=== PATIENT | male | born 1940 | race Caucasian/White ===

== ENCOUNTER → 2019-11-09 12:51 | Outpatient (BNVA) | payer MEDICARE, OTHER, SELFPAY | PROVIDERS: Family Provider Family Medicine; PCP Family Medicine; Visit Provider Family Medicine | DX: N40.1 Benign prostatic hyperplasia with lower urinary tract symptoms (principal); F41.9 Anxiety disorder, unspecified; R35.0 Frequency of micturition; N40.0 Benign prostatic hyperplasia without lower urinary tract symptoms; Z12.5 Encounter for screening for malignant neoplasm of prostate | CPT/HCPCS: 80053; 81000; 85025; 87086; G0103 ==

== ENCOUNTER 2020-04-29 12:32 | Emergency (ER) | payer MEDICARE, OTHER, SELFPAY ==
[2020-04-29 12:47] VITALS: BP 129/68; PULSE 82; RESP 14; TEMP 36.2; O2SAT 98; BMI 19.6
--- NOTE | 2020-04-29 13:10 | ED_ITS ---
HPI - General Adult General: Chief complaint: General Medical Stated complaint: CONSTIPATED Time Seen by Provider: 04/29/20 12:51 History of Present Illness: HPI narrative: The patient is a 79-year-old male who comes to the ER complaining he is constipated and Passes feces. He says he is having abdominal cramping and feels like he needs to defecate but cannot. He says he put some soap on his finger and felt hard poop but could not get it to come out. Onset (ago): hour(s) (2) Severity: mild Quality: sharp Pain Consistency: intermittent and colicky Relieving factors: none Associated symptoms: Deny chest pain, confusion, dyspnea, headache(s), rash or palpitations Review of Systems General: Reports: 10 or more systems reviewed and unremarkable except in HPI a nd below Const: Denies: fatigue Eyes: Denies: change in vision, blurry vision or eye redness ENMT: Denies: throat pain, swelling of lips/tongue, ear or mastoid pain or nasal congestion Card: Denies: chest pain, palpitations, irregular heart rhythm, edema, dyspnea on exertion or orthopnea Resp: Denies: dyspnea, productive cough or non-productive cough GI: Denies: abdominal pain (Admits abdominal cramping), diarrhea or GI cramping : Denies: flank pain, urinary frequency or urinary urgency Musc: Denies: neck pain, back pain, extremity pain, joint pain, joint redness, limited range of motion or muscle weakness Skin/Breast: Denies: rash, pruritus, erythema, skin pain or skin tenderness Neuro: Denies: headache(s), numbness in extremities, weakness in extremities, sensory changes, difficulty walking, dizziness, confusion or Slurred speech present Psych: Denies: anxiety or depression Endo: Denies: polyuria All/Imm: Denies: urticaria, throat swelling or tongue swelling PFSH ED PFSH: Medical History (Updated 04/29/20 @ 15:53 by Burak Ricks MD) Anxiety Social History Smoking and tobacco status: never smoked Alcohol intake: never Physical Exam Const: COMMON NORMALS: no acute distress, average body habitus, patient oriented x3, no limitations, healthy appearing, alert and well nourished GENERAL APPEARANCE: cooperative, comfortable, well kempt and well developed ORIENTATION/CONSCIOUSNESS: Yes awake, Yes oriented to person, Yes oriented to place and Yes oriented to time HENMT: COMMON NORMALS: normocephalic, external ears normal and Normal external nose present HEAD & SCALP: normal to inspection and normocephalic NOSE: Normal external nose present EXTERNAL EAR: Yes external ears normal MOUTH: Normal oral and palatal mucosa present THROAT: posterior oropharynx normal Eye: COMMON NORMALS: Equal, round and reactive pupils present and EOMs intact bilaterally GENERAL EYE: appearance normal, both eyes and all related structures PUPIL: Yes Equal, round and reactive pupils present Neck/C-Spine: COMMON NORMALS: full ROM, no lymphadenopathy, no meningeal signs and no JVD GENERAL: Yes normal visual inspection Lymph: LYMPHATIC: no lymphadenopathy noted Chest: COMMONS NORMALS: normal inspection of the chest and normal palpation of entire chest wall Resp: COMMON NORMALS: normal respiratory effort, No retractions, No use of accessory muscles, clear to auscultation bilaterally and percussion normal EFFORT & INSPECTION: Yes able to speak in complete sentences AUSCULTATION: clear to auscultation bilaterally PERCUSSION: percussion normal Cardio: COMMON NORMALS: no JVD, regular rate, regular rhythm, S1 normal heart sound present, S2 normal heart sound present and Peripheral pulses 2+ throughout RATE: regular rate RHYTHM: regular rhythm HEART SOUNDS: S1 normal heart sound present and S2 normal heart sound present PERIPHERAL PULSES: Peripheral pulses 2+ throughout GI: COMMON NORMALS: Normal to inspection, nondistended, normoactive bowel sounds present, Soft to palpation, non-tender and no masses INSPECTION: Yes normal to inspection PALPATION: Yes Soft to palpation : COMMON NORMALS: Yes no CVA tenderness BLADDER/KIDNEY EXAM: Yes no CVA tenderness Back/Pelvis: COMMON NORMALS: no CVA tenderness, thoracic and lumbar spine normal to inspection, no thoracic nor lumbar tenderness and thoraco-lumbar ROM normal Extremity: COMMON NORMALS: normal to inspection, full ROM, capillary refill normal, no joint enlargement and no pedal edema GENERAL: Yes normal exam except as noted Neuro: COMMON NORMALS: patient oriented x3, CN's II-XII intact bilaterally, moves all extremities, no focal motor deficits, no sensory deficits noted and gait normal SENSORIUM/ORIENTATION: Yes alert, Yes oriented to person, Yes oriented to place and Yes oriented to time MENINGEAL SIGNS: Yes no meningeal signs Psych: COMMON NORMALS: mental status grossly normal, Normal thought process present, cooperative, normal affect and speech normal APPEARANCE: Yes well kempt ATTITUDE: Yes calm SPEECH: Yes normal speech THOUGHT PROCESS: Normal thought process present Skin: COMMON NORMALS: no rashes or lesions noted GENERAL SKIN EXAM: no rashes or lesions noted Course Vital Signs: Vital signs: Vital Signs Temperature 97.2 F L 04/29/20 12:47 Pulse Rate 82 04/29/20 12:47 Respiratory Rate 14 04/29/20 12:47 Blood Pressure 129/68 04/29/20 12:47 Pulse Oximetry 98 04/29/20 12:47 MDM - General Adult MDM Narrative: Medical decision making narrative: The patient was severely constipated he initially refused a fleets enema then allowed me to do it myself. He also has external hemorrhoids present which have mild tenderness to them. I tried to manually disimpact him as well which he did not want. He said the fleets enema did not help him pass a bowel movement and requested immediately to leave. I recommended he stay and we can try other enemas and manual disimpaction. He refused these options and signed AGAINST MEDICAL ADVICE and left. Differential Diagnosis: Differential Diagnosis: constipation, hemmorhoids, bowel ischemia/rupture Discharge Plan Discharge Patient Disposition: Left Against Medical Advice Clinical Impression: Fecal impaction Constipation Qualifiers: Constipation type: other constipation type Qualified Code(s): K59.09 - Other constipation Condition: Good Prescriptions: No Action alprazolam 1 mg tablet 1 mg PO TID PRN (Reason: anxiety) 15 Days Qty: 45 RF: 0 Referrals: Jimmy Hudson MD [Primary Care Provider] - Activity Restrictions/Additional Instructions: I recommended he return to the ER at any time for further evaluation. I recommended he stay and let me disimpact him manually however he refused and signed AGAINST MEDICAL ADVICE and left Coding Level of Care Code ED Compliance Lead for Te[employer] Fwd Exam Comprehensive
[2020-04-29] MEDS: Fleet Enema 133 mL Enema PR (13:18)
== END 2020-04-29 15:08 | disposition left against medical advice (07) ==
PROVIDERS: Emergency Provider Family Medicine; PCP Family Medicine
DX: K59.09 Other constipation (principal)
CPT/HCPCS: 12345; 99281; 99282

== ENCOUNTER 2020-06-05 22:27 | Emergency (ER) | payer MEDICARE, OTHER, SELFPAY ==
[2020-06-05 22:29] VITALS: BP 175/84; PULSE 69; RESP 16; TEMP 36.8; O2SAT 99; BMI 18.3
--- NOTE | 2020-06-05 22:42 | XRR_ITS ---
PROCEDURE INFORMATION: Exam: XR Right Shoulder Exam date and time: 06/05/2020 11:08 PM Age: 79 years old Clinical indication: Pain and injury or trauma; Fall; Blunt trauma (contusions or hematomas); Shoulder; Right; Injury date: 06/05/20 TECHNIQUE: Imaging protocol: XR Right shoulder. Views: 2 or more views. COMPARISON: No relevant prior studies available. FINDINGS: Bones/joints: Normal. Soft tissues: Normal. XR/XR shoulder RT min 2V* [id number] IMPRESSION: No acute findings.
--- NOTE | 2020-06-05 22:42 | W.ED.FALL ---
HPI - Fall General: Chief Complaint: Fall Stated Complaint: SHOULDER PAIN Time Seen by Provider: 06/05/20 22:42 History of Present Illness: HPI Narrative: Patient arrives via ambulance with complaint of right shoulder pain from a fall. Said he was got up to go to the bathroom from bed any tripped on a rug and fell striking his right shoulder and this occur probably about an hour ago. Denies any dizziness chest pain shortness of breath or other related problems denies hitting his head. Has no history of falls. complaint: fall Onset (ago): minute(s) Fall from: standing Fall witnessed: no Place fall occurred: home Loss of consciousness: None Prolonged down time: no Symptoms prior to fall: none Context: tripped/slipped Location of injury: other Location of injury - extremities: Right: shoulder Severity: moderate Severity scale (1-10): 4 Quality: aching Associated symptoms-after fall: Reports no associated symptoms; Denies abdominal pain, chest pain or headache(s) Review of Systems Const: Denies: fever(s), chills or body aches Eyes: Denies: change in vision or blurry vision ENMT: Denies: throat pain or nasal congestion Card: Denies: chest pain or dyspnea on exertion Resp: Denies: dyspnea, productive cough or non-productive cough GI: Denies: abdominal pain, nausea or vomiting : Denies: difficulty urinating Musc: Reports: joint pain (Right anterior shoulder); Denies: extremity pain Skin/Breast: Denies: rash Neuro: Reports: other (Denies head injury); Denies: headache(s) Psych: Denies: anxiety or depression [place]/Lymph: Denies: easy bruising [facility] ED PFSH: Medical History (Updated 06/05/20 @ 23:29 by AVINASH Nicole) Anxiety Social History Smoking and tobacco status: never smoked Alcohol intake: never Physical Exam Const: COMMON NORMALS: no acute distress, average body habitus and patient oriented x3 HENMT: COMMON NORMALS: normocephalic HEAD & SCALP: normal to inspection and normocephalic FACE & SINUS: normal facial exam Eye: COMMON NORMALS: conjunctivae normal GENERAL EYE: appearance normal, both eyes and all related structures CONJUNCTIVA: Yes conjunctivae normal Neck/C-Spine: COMMON NORMALS: no JVD Chest: COMMONS NORMALS: normal inspection of the chest Resp: COMMON NORMALS: normal respiratory effort and clear to auscultation bilaterally AUSCULTATION: clear to auscultation bilaterally Cardio: COMMON NORMALS: no JVD, regular rate and regular rhythm RATE: regular rate RHYTHM: regular rhythm GI: COMMON NORMALS: Normal to inspection, nondistended, normoactive bowel sounds present Extremity: COMMON NORMALS: full ROM RIGHT UPPER EXTREMITY: Yes shoulder joint (Tender to anterior aspect limited range of motion due to pain no swelling b) Right shoulder: Yes Right shoulder joint neurovascular exam (Neurovascular status intact) Neuro: COMMON NORMALS: patient oriented x3, CN's II-XII intact bilaterally, moves all extremities and no sensory deficits noted Psych: COMMON NORMALS: mental status grossly normal Course Vital Signs: Vital signs: Vital Signs Temperature 98.3 F 06/05/20 23:54 Pulse Rate 68 06/05/20 23:54 Respiratory Rate 16 06/05/20 23:54 Blood Pressure 166/80 06/05/20 23:54 Pulse Oximetry 99 06/05/20 23:54 MDM - Fall MDM Narrative: Medical decision making narrative: Contusion right shoulder- possible dislocation , occult fracture and /or ligament strain. Patient to follow-up with family medical provider if no significant improvement. Patient will do stretching exercises apply ice to area as needed will take Tylenol or ibuprofen for pain. Follow-up family medical provider -assess for fall risk Discharge Plan Discharge Patient Disposition: Home Clinical Impression: Contusion of right shoulder Qualifiers: Encounter type: initial encounter Qualified Code(s): S40.011A - Contusion of right shoulder, initial encounter Condition: Stable Prescriptions: No Action alprazolam 1 mg tablet 1 mg PO TID PRN (Reason: anxiety) 30 Days Qty: 90 RF: 0 megestrol 400 mg/10 mL (40 mg/mL) suspension 400 mg PO DAILY Qty: 240 RF: 1 Discharge Orders: Discharge ED (Routine); Ordered 06/05/20 Ordered By: Winston Hernandez Referrals: Jimmy Hudson MD [Primary Care Provider] - Discharge Diet: Usual diet Discharge Activity: Increase activity as tolerated Patient Instructions: Contusion in Adults (ED) Activity Restrictions/Additional Instructions: Can take Tylenol or ibuprofen for pain. Apply ice as needed . Follow-up with your family medical provider if no significant improvement. Coding Level of Care Code ED Sand Mixer for Fan Fwjessica Exam Comprehensive
[2020-06-05 22:49] VITALS: BP 175/84; PULSE 76; RESP 16; O2SAT 100
[2020-06-05 23:54] VITALS: BP 166/80; PULSE 68; RESP 16; TEMP 36.8; O2SAT 99
== END 2020-06-05 23:54 | disposition home or self-care (01) ==
PROVIDERS: Emergency Provider Nurse Practitioner Family; PCP Family Medicine
DX: S40.011A Contusion of right shoulder, initial encounter (principal); W18.09XA Striking against other object with subsequent fall, initial encounter
CPT/HCPCS: 12345; 73030; 99282

== ENCOUNTER → 2020-07-28 11:13 | Outpatient (BNVA) | payer MEDICARE, OTHER, SELFPAY | PROVIDERS: PCP Family Medicine; Visit Provider Family Medicine | DX: E03.9 Hypothyroidism, unspecified (principal); F32.1 Major depressive disorder, single episode, moderate; F41.9 Anxiety disorder, unspecified | CPT/HCPCS: 80053; 82728; 83550; 84439; 84443; 85025 ==

== ENCOUNTER → 2020-08-01 13:06 | Day surgery (SDC) | payer MEDICARE, OTHER, SELFPAY ==
[2020-08-01] MEDS: ferric carboxy (IVPB) 750 MG in sodium chloride 0.9% (100 ml) 100 ML 345 MG IV (13:43)
[2020-08-01 13:44] VITALS: BP 116/77; PULSE 91; RESP 18; TEMP 36.6
[2020-08-01 13:50] VITALS: BMI 19.5
== END ==
PROVIDERS: PCP Family Medicine; Visit Provider Family Medicine
DX: D50.9 Iron deficiency anemia, unspecified (principal)
CPT/HCPCS: 96365; J1439

== ENCOUNTER → 2020-08-08 13:45 | Day surgery (SDC) | payer MEDICARE, OTHER, SELFPAY ==
[2020-08-08 13:48] VITALS: BP 128/74; PULSE 94; RESP 16; TEMP 37.6; O2SAT 99
[2020-08-08] MEDS: ferric carboxy (IVPB) 750 MG in sodium chloride 0.9% (100 ml) 100 ML 345 MG IV (14:11)
== END ==
PROVIDERS: PCP Family Medicine; Visit Provider Family Medicine
DX: D50.8 Other iron deficiency anemias (principal)
CPT/HCPCS: 96365; J1439